=== PATIENT | female | born 1955 ===

== ENCOUNTER → 2019-03-31 | Outpatient (CLI) | payer MEDICARE ==
[~2019-03-31] MED LIST: 00186-0370-20 IH; ARMONAIR RESPI55 MCG IH; CLARITIN 1010 MG/TAB PO; GLUCOPHAGE500 MG/TAB PO; HCTZ 25MG TAB25 MG PO; K-DUR20 MEQ PO; LIPITOR 80MG80 MG PO; MYCOSTATIN100000 U/G TP; OMEGA-3 1000 MG1 CAP PO; PEPCID40 MG PO; PREDNISONE20 MG PO; PROAIR RES117 MCG/Ac IH
== END ==
LOC: COL.RAD 09:30
DX: K21.9 Gastro-esophageal reflux disease without esophagitis (principal)